=== PATIENT | female | born 1995 | race Hispanic/Latino ===

== ENCOUNTER 2024-05-28 01:35 | Emergency (ER) | payer MEDICAID ==
[~2024-05-28] VITALS: Ht 160 cm; Wt 76.9 kg
[2024-05-28] MEDS ORDERED: ondansetron HCL 4 MG/2 ML VIAL IV ONE (02:00)
[2024-05-28] MEDS ORDERED: SODIUM CHLORIDE 0.9% 1,000 ML IV ONE (02:00)
[2024-05-28] MEDS ORDERED: MORPHINE SULFATE 4 MG/ML VIAL IV ONE (02:00)
[2024-05-28 02:19] LABS: HEMATOCRIT 43.3 % (35.0-50.0); HEMOGLOBIN 14.9 g/dL (12.0-18.0); MCH 31.1 (27-36); MCHC 34.5 g/dl (30-36); MCV 90.2 fl (81-99); PLATELET COUNT 396 K/uL (140-440); RDW 13.8 (10.5-15.0)
[2024-05-28 02:33] LABS: ALBUMIN 3.6 g/dL (3.4-5.0); ALBUMIN/GLOBULIN RATIO 0.95 (1.1-2.4); ANION GAP 14.8 (7-21); BILIRUBIN, TOTAL 0.2 mg/dL (0.2-1.0); BUN/CREATININE RATIO 25.42 (6.0-28.6); CALCIUM 9.6 mg/dL (8.5-10.1); CREATININE, SERUM 0.59 mg/dL (0.55-1.02); POTASSIUM 3.8 mmol/L (3.5-5.1); PROTEIN, TOTAL 7.4 g/dL (6.4-8.2)
[2024-05-28 02:37] LABS: LYMPHOCYTES, MANUAL DIFF 40; NEUTROPHILS, MANUAL DIFF 60
[2024-05-28] MEDS ORDERED: ONDANSETRON ODT8 MG PO (03:33)
[2024-05-28 03:45] LABS: BILIRUBIN, URINE NEGATIVE (negative); BLOOD/HGB, URINE NEGATIVE (Negative); KETONE, URINE NEGATIVE (Negative); LEUK ESTERASE, URINE NEGATIVE (negative); NITRITE, URINE NEGATIVE (negative)
[2024-05-28] MEDS ORDERED: TRAMADOL HCL 50 MG HOME.PACK PO ONE (03:45)
[2024-05-28] MEDS ORDERED: PROMETHAZINE HCL 25 MG SUPP. HOME.PACK PR ONE (03:45)
[2024-05-28] MEDS ORDERED: ONDANSETRON 4 MG HOME.PACK SL ONE (03:45)
[2024-05-28 03:50] LABS: CASTS, URINE NONE SEEN \\lpf; CRYSTALS, URINE NONE SEEN (0-1+); EPITHELIAL CELLS, URINE SQUAMOUS 2+ /lpf (0-1+); RED BLOOD CELLS, URINE 0-1 /hpf (0-5)
[2024-05-28 03:51] LABS: BACTERIA, URINE 1+ /hpf (negative); COLLECTION TYPE, URINE CLEAN CATCH; REFLEX CULTURE, URINE No (No)
[2024-05-28 05:00] VITALS: BP 105/66
== END 2024-05-28 05:00 | disposition home or self-care (01) ==
LOC: ED 01:35
PROVIDERS: Family Medicine
DX: K52.9 Noninfective gastroenteritis and colitis, unspecified (principal)
CPT/HCPCS: 36415; 74018; 80053; 81001; 83690; 84703; 85025; 96365; 96366; 96375; 99284-25; A9270; J2270; J2405; J7030